=== PATIENT | male | born 1930 | race Caucasian/White ===

== ENCOUNTER 2017-06-24 10:31 | Observation (INO) | payer MEDICARE ==
[2017-06-24] MEDS ORDERED: NS 0.9% 1000 ML* 1,000 ML IV ONE (11:20)
--- NOTE | 2017-06-24 11:49 | RAD ---
Indication: Syncope. CT of the brain was performed without IV contrast. Ventricular structures are midline. No midline shift is noted. The extra-axial spaces are unremarkable. There is no evidence of intracranial mass or hemorrhage. No other high or low density lesions are identified. The paranasal sinuses demonstrates mucous retention cyst of left sphenoid sinus. The remainder of the paranasal sinuses are unremarkable. Mastoid air cells are unremarkable. IMPRESSION: No intracranial mass or hemorrhage is noted. Left sphenoid mucous retention cyst.
--- NOTE | 2017-06-24 11:56 | RAD ---
INDICATION: Syncope, trauma. COMPARISON: There are no prior studies available for comparison. TECHNIQUE: Contiguous axial sections were obtained from the skull base through the T1 vertebra. Images were reconstructed in the sagittal and coronal planes. FINDINGS: The vertebra are in normal alignment. No prevertebral soft tissue swelling or fracture is seen. At the C2-C3 level there is mild posterior uncinate process spurring and hypertrophic changes within the facet joints. There is mild spinal canal narrowing and mild bilateral neural foraminal narrowing. At the C3-C4 level there is moderate posterior uncinate process spurring and hypertrophic changes within the facet joints. There is moderate spinal canal narrowing and moderate bilateral neural foraminal narrowing. At the C4-C5 level there is mild posterior uncinate process spurring and hypertrophic changes within the facet joints. There is mild to moderate spinal canal narrowing. There is mild neural foraminal narrowing on the right side and moderate neural foraminal narrowing on the left side. At the C5-C6 level there is moderate posterior uncinate process spurring and hypertrophic changes within the facet joints. There is moderate spinal canal narrowing and moderate to severe bilateral neural foraminal narrowing. At the C6-C7 level there is mild posterior uncinate process spurring and hypertrophic changes within the facet joints. There is mild to moderate spinal canal narrowing and moderate bilateral neural foraminal narrowing. There is a 1.1 cm nodule within the left thyroid lobe. IMPRESSION: 1. NO EVIDENCE FOR FRACTURE OR SUBLUXATION. 2. 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 3. 1.1 CM NODULE WITHIN THE LEFT THYROID LOBE.
[2017-06-24 12:09] LABS: Hematocrit 37 % (42-52); Hemoglobin 12.1 g/dl (14.0-18.0); Mean Corpuscular HGB Conc 33 g/dl (31-36); Mean Corpuscular Hemoglobin 32 pg (27-31); Mean Corpuscular Volume 97 fL (80-94); Mean Platelet Volume 10 um3 (7.4-10.4); Red Blood Count 3.79 10^6/ul (4.0-5.4); Red Cell Distribution Width 14 % (10.5-15); White Blood Count 13.4 10^3/ul (3.5-10.8)
[2017-06-24 12:26] LABS: ALT 15 U/L (7-52); AST 17 U/L (13-39); Albumin 3.5 g/dL (3.2-5.2); Alkaline Phosphatase 87 U/L (34-104); Anion Gap 5 mmol/L (2-11); BUN/Creatinine Ratio 12.6 (8-20); Blood Urea Nitrogen 14 mg/dL (6-24); CO2 Carbon Dioxide 28 mmol/L (22-32); Calcium 8.9 mg/dL (8.6-10.3); Chloride 104 mmol/L (101-111); Creatine Kinase 34 U/L (10-223); EGFR African American 81.2 (>60); EGFR Non-African American 63.1 (>60); Globulin 3.5 g/dL (2-4); Glucose 115 mg/dL (70-100); Magnesium 1.7 mg/dL (1.9-2.7); Potassium 4.2 mmol/L (3.5-5.0); Sodium 137 mmol/L (133-145)
[2017-06-24 12:27] LABS: Troponin I 0.02 ng/mL (<0.04)
--- NOTE | 2017-06-24 12:45 | RAD ---
INDICATION: Syncope. COMPARISON: There are no prior studies available for comparison. TECHNIQUE: A portable view of the chest was obtained. FINDINGS: Cardiac and mediastinal contours appear to be within normal limits. The lungs are clear. No pleural effusion is seen. Note is made of old left posterior ununited mid rib fractures. IMPRESSION: NO EVIDENCE FOR ACUTE FINDING.
[2017-06-24 12:52] LABS: TSH (Thyroid Stimulating Horm) 1.03 mcIU/mL (0.34-5.60)
[2017-06-24] MEDS ORDERED: Acetaminophen TAB* 325 MG PO PRN (13:46)
[2017-06-24] MEDS ORDERED: Ondansetron INJ* 2 MG/ML VIAL IV PRN (13:46)
[2017-06-24] MEDS ORDERED: NS 0.9% 1000 ML* 1,000 ML IV SCH (14:00)
[2017-06-24] MEDS ORDERED: Enoxaparin(*) 40 MG/0.4 ML SYR SUBCUT SCH (14:00)
[2017-06-24 14:21] LABS: Urine Bilirubin Negative (Negative); Urine Glucose Negative (Negative); Urine Nitrite Negative (Negative)
[2017-06-24 15:02] LABS: Vitamin B12 452 pg/mL (180-914)
[2017-06-24 15:03] LABS: Folate > 20.00 ng/mL (>3.99)
--- NOTE | 2017-06-24 17:23 | ECHO ---
Patient: ELOISE HSU [facility] Rec#: [id number] : 1930 Date: 06/24/2017 Age: 86y Height: 182.88 cm / 72.0 in Weight: 65.77 kg / 145.0 lbs Sex: M BSA: 1.86 Room#: 443 Admit Date#: 06/24/2017 Type: Inpatient Referring: Sarah Johnson Reading: Layton Mcclendon MD Optometry Doctor: Clare Pressley JOSUE CC: Jimbo Liang MD Transthoracic Echocardiogram Indication: Syncope BP: 134/74 HR: 72 Rhythm: NSR Findings History: Syncope today. Prior PCI x3,quit smoking 1987. Technical Comments: The study is technically limited due to the patient's smoking history. Completed at 1533. Left Ventricle: The left ventricular chamber size is normal. Mild concentric left ventricular hypertrophy is observed. The estimated ejection fraction is 50-55%. Possible anterolateral hypokinesis in some views. There is no consistent Doppler evidence of clinically significant diastolic dysfunction. Left Atrium: The left atrium is slightly dilated. Right Ventricle: The right ventricular cavity size is normal. The right ventricular global systolic function is normal. Right Atrium: The right atrium is slightly dilated. Aortic Valve: The aortic valve is trileaflet. The aortic valve leaflets are mildly thickened. There is no evidence of aortic regurgitation. There is no evidence of aortic stenosis. Mitral Valve: The mitral valve leaflets appear normal. There is trace to mild mitral regurgitation. There is no evidence of mitral stenosis. Tricuspid Valve: The tricuspid valve leaflets are normal. There is mild tricuspid regurgitation. There is evidence of mild pulmonary hypertension. There is no tricuspid stenosis. Pulmonic Valve: The pulmonic valve appears normal. There is no evidence of pulmonic regurgitation. There is no pulmonic stenosis. Pericardium: The pericardium appears normal. Aorta: There is no dilatation of the ascending aorta. There is no dilatation of the aortic arch. There is no dilation of the aortic root. Pulmonary Artery: The main pulmonary artery appears normal. Venous: The venous system is not well visualized. Summary: There was not any prior study for comparison. Conclusions Mild concentric left ventricular hypertrophy is observed. The estimated ejection fraction is 50-55%. Possible anterolateral hypokinesis in some views. The left atrium is slightly dilated. There is evidence of mild pulmonary hypertension. There is trace to mild mitral regurgitation. There is mild tricuspid regurgitation. There is evidence of mild pulmonary hypertension. Measurements Name Value Normal Range RVIDd (AP) 2D 2.5 cm (0.9 - 2.6) RVDdMajor (2D) 3.7 cm (2.2 - 4.4) RAd ISD 4CH 5.4 cm (3.4 - 4.9) RA (A4C)W 4.5 cm (2.9 - 4.6) IVSd (2D) 1.5 cm (0.6 - 1) LVPWd (2D) 1.1 cm (0.6 - 1) LVIDd (2D) 3 cm (3.6 - 5.4) LVIDs (2D) 2.3 cm - LV FS (2D) 23 % (25 - 45) Aortic Annulus 2 cm (1.4 - 2.6) Ao root diameter (2D) 2.7 cm (2.1 - 3.5) Ascending Ao 3.4 cm (2.1 - 3.4) Aortic arch 2.3 cm (1.8 - 3.4) Descending Ao 0.9 cm - LA dimension (AP) 2D 4.7 cm (2.3 - 3.8) LAd ISD 4CH 5.9 cm (2.9 - 5.3) LA ISD 4CH W 3.6 cm (2.5 - 4.5) Name Value Normal Range LA ESV SP 4CH (A/L) 62 ml - LA ESV SP 2CH (A/L) 79 ml - LA ESV BP (A/L) 76 ml - LA ESV BP (A/L) index 40.93 ml/m2 - LA ESV SP 4CH (MOD) 56 ml - LA ESV SP 2CH (MOD) 75 ml - Name Value Normal Range MV E-wave Vmax 1.1 m/sec - MV deceleration time 223 msec - MV A-wave Vmax 0.9 m/sec - MV E:A ratio 1.28 ratio - LV septal e' Vmax 0.09 m/sec - LV lateral e' Vmax 0.11 m/sec - LV E:e' septal ratio 12.22 ratio - LV E:e' lateral ratio 10 ratio - Name Value Normal Range AV Vmax 1.4 m/sec - AV VTI 26.8 cm - AV peak gradient 7.48 mmHg - AV mean gradient 3.68 mmHg - LVOT Vmax 1.2 m/sec - LVOT VTI 25.6 cm - LVOT peak gradient 5.94 mmHg - LVOT mean gradient 2.12 mmHg - Name Value Normal Range TR Vmax 2.9 m/sec - TR peak gradient 32 mmHg - RAP 8 mmHg - RVSP 40 mmHg - Name Value Normal Range PV Vmax 1.1 m/sec - PV peak gradient 4.67 mmHg -
--- NOTE | 2017-06-24 17:57 | HP ---
CC: Dr. Jimbo Liang * HISTORY AND PHYSICAL: DATE OF ADMISSION: 06/24/17 PROVIDER: Genoveva Donnelly NP ATTENDING PHYSICIAN: Dr. Mirian Goetz * (as dictated by Genoveva Donnelly NP). PRIMARY CARE PROVIDER: Dr. Jimbo Liang. CHIEF COMPLAINT: Syncope. HISTORY OF PRESENT ILLNESS: Mr. Asif is an 86-year-old gentleman, who is from [place], who was in the [facility] this morning, for modular home placement. The patient does not recall the event this morning, secondary to the syncopal episode. The history is provided by his granddaughter, who did observe the event. Reportedly, the patient was leaning up against a dump truck, while the family was out at the modular home built. The granddaughter noted that the patient was leaning over, and she thought that he was looking at his shoes. She went over to check on him and noticed that he was not responding and then went to provide him with support. Her was with her and tried to support him, and at this point, the patient's legs started to collapse. He did bump the back of his head on the dump truck on his way down. His granddaughter reports he lost consciousness for about 2 minutes. Of note, his granddaughter works as a nurse at [employer]. She states that he maintained a pulse and good breathing throughout the event and did not notice any other concerns, such as a facial droop. She denies any complaints or concerns from the patient and heard no reports of chest pain or shortness of breath. She does note that he was very diaphoretic as well as tachypneic and noticed some drooling. He was also very pale. The patient woke up 2 minutes later, she says that he was back to his normal self and answering questions approximately and was able to communicate at his baseline. Family does endorse another episode of syncope that occurred about 2 years ago up in [place], also on a hot day. This was thought to be secondary to dehydration. Family reports that when EMS arrived, they noted that the patient's heartbeat was erratic with PACs and varying pulse rates. He was originally going to travel to the hospital via BLS, but they called the ALS truck with concern for the patient's heart rate. Here in the ER, the patient did have a mildly elevated white count of 13.4, hemoglobin 12.1, hematocrit 37. The patient is mildly macrocytic, has a platelet count of 145, and a mag level of 1.7. Currently, the patient denies any acute complaints and states he "feels fine." Family does note that the patient has had consistent issues with electrolyte levels since he started Lasix over the past 6 months. The patient's significant other also reports that he has had intermittent diarrhea at home secondary to magnesium replacement. They also report that the patient did not drink much fluid today. He does usually drink coffee every day. PAST MEDICAL HISTORY: 1. Coronary artery disease, the patient is status post 3 stents placed at [facility] on 04/20/17. 2. COPD. 3. Asthma. 4. Hypertension. 5. Hyperlipidemia. 6. GERD. 7. History of prostate cancer, status post radiation therapy. PAST SURGICAL HISTORY: 1. Three stents placed in March 2017. 2. Right carotid endarterectomy. 3. Cholecystectomy. 4. Hernia repair in 1987. HOME MEDICATIONS: 1. Protonix 40 mg daily. 2. Furosemide 20 mg daily. 3. Hytrin 5 mg at bedtime. 4. Lisinopril 5 mg daily. 5. Clopidogrel 75 mg daily. 6. Atorvastatin 80 mg daily. 7. Asmanex 1 puff inhaled b.i.d. 8. Aspirin 81 mg daily. ALLERGIES: Include BETA BLOCKERS, which caused anaphylactic shock. FAMILY HISTORY: He reports the father, who was , who had coronary artery disease as well as a sister who from heart valve complications. He also reports a sister with lung cancer. SOCIAL HISTORY: The patient is a former smoker. He quit in 1987. He report rare alcohol use. He is retired. He frequently fishes. He performs all his own independent ADLs. He lives with a friend, Chelsey Jackman, who is also his healthcare proxy. He has multiple children and a granddaughter. REVIEW OF SYSTEMS: As per HPI. PHYSICAL EXAMINATION GENERAL: Mr. Asif is a very pleasant 86-year-old gentleman, who is lying in the ED stretcher, in no acute distress. VITAL SIGNS: Temperature 97.1, heart rate 70, respiratory rate 16, blood pressure 134/74, and O2 saturation 99% on room air. HEENT: Head is atraumatic, normocephalic. Face is symmetrical. Pupils are equal, round, and reactive to light. Extraocular movements are intact. Oral mucosa appears moist. There is no oropharyngeal erythema or exudate. NECK: Supple. No lymphadenopathy appreciated. No JVD noted. RESPIRATORY: Lungs are clear to auscultation. No accessory muscle use. CARDIAC: S1, S2 heart sounds. Regular rate and rhythm. No murmurs, rubs, or gallops.. There is no peripheral edema. ABDOMEN: Soft, nontender, nondistended. Bowel sounds present times all 4 quadrants. MUSCULOSKELETAL: There is no clubbing or cyanosis. The patient has full range of motion. NEURO: Cranial nerves II through XII are grossly intact. The patient moves all extremities. Sensation is intact to light touch throughout. PSYCH: He is alert and oriented x3. Affect is appropriate. SKIN: Appears grossly intact. Limited assessment. DIAGNOSTIC STUDIES/LAB DATA: CBC: WBC 13.4, hemoglobin 12.1, hematocrit 37, MCV 97, MCH 32, platelet count 145. CMP: Sodium 137, potassium 4.2, chloride 104, carbon dioxide 28, BUN 14, creatinine 1.11, glucose 115, lactic acid 1.8, magnesium 1.7. Total bilirubin 0.9, AST 17, ALT 15, alk phos 87. Total CK 34. Troponin 0.02. BNP 72. Total protein 7, albumin 3.5. TSH 1.03. CT of the cervical spine, impression: No evidence for fracture or subluxation. [id number] cervical spondylosis, 1.1-cm nodule within the left thyroid lobe. Chest x-ray, impression: No evidence for acute finding. CT of the brain, impression: No intracranial mass or hemorrhage noted. There is a left sphenoid mucous retention cyst. EKG shows sinus rhythm, rate of 71, no T-wave inversions or ST changes noted. There are no old medical records for review. ASSESSMENT AND PLAN: Mr. Asif is an 86-year-old male, who presents today with concern for syncopal episode, he will be admitted under observation to the telemetry floor. Plan is as follows: 1. Syncope. Admit to telemetry. The patient's history of present illness supports likely dehydration. The patient reports no changes to his activity tolerance. He has a previous history of syncope, also for dehydration in the past and has recently been on Lasix, has reported diarrhea, and poor fluid intake today. We will monitor him on telemetry for evidence of any arrhythmias. The patient was showing PACs on his telemetry in the ED and does have a slightly decreased magnesium at 1.7. We will replace his mag and recheck his BMP tomorrow. The patient will receive an additional liter of fluid. We will also check orthostatic vital signs prior to additional IVF. UA is pending, although the patient does not endorse any complaints consistent with acute infection, but he does have a mildly elevated white blood cell count, which we will also recheck tomorrow. I did talk with the ekg technician, who is able to do an echocardiogram today. I will also request records from the patient's primary collision mechanic, Dr. Pratt, at [facility]. 2. Leukocytosis. Suspect this is a leukemoid reaction to recent syncopal episode. Continue to monitor. We will check a UA. Chest x-ray is clear. The patient does not show any other acute symptoms of infection, and he appears to be at his baseline, per his family. 3. Macrocytosis. Unsure of the chronicity of this. I will check a B12 and folate level. The patient may require further outpatient followup. He is mildly anemic, which also may be contributing to his syncopal episode, but, again, I do not have a baseline for the patient, as he has not been in the hospital here before. As this point, we will follow his CBC to make sure it stays stable. The patient is on Plavix and aspirin, which may be contributing to his anemia. I will also check a stool occult. 4. Hypomagnesemia. Suspect this is secondary to the patient's furosemide use. Replete mag via IV. 5. History of coronary artery disease. Continue home aspirin, atorvastatin, and Plavix, as the patient is status post stent placement earlier this year. 6. History of chronic obstructive pulmonary disease, appears stable. Continue home Asmanex. 7. History of hypertension. Continue lisinopril. 8. History of hyperlipidemia. Continue atorvastatin. 9. History of gastroesophageal reflux disease. Continue pantoprazole. 10. History of prostate cancer. Continue terazosin and outpatient followup with PCP. 11. FEN. The patient is ordered a heart-healthy diet and 1 L of fluids. 12. DVT prophylaxis. The patient scores a 3 on the risk assessment scale and he has ordered subcu Lovenox. 13. Code status: The patient is a full code. TIME SPENT: Time spent on this admission was approximately 60 minutes, more than half that time was spent [id number] with the patient obtaining history and physical, performing physical examination, and reviewing the plan of care. Plan of care was also reviewed with my attending, Dr. Goetz, who is in agreement. GENOVEVA DONNELLY, PHOTOGRAPHIC HAND DEVELOPER [id number]/CPS #: [id number] CAMRYN
[2017-06-24] MEDS: Mometasone 220 MCG MDI INH SCH (20:17)
[2017-06-24] MEDS ORDERED: Terazosin CAP* 5 MG PO SCH (21:00)
--- NOTE | 2017-06-24 23:12 | ED ---
Augie Hansen SooYoung, scribed for Jelena Goode MD on 06/24/17 at 1126 . Syncope/Near Syncope - HPI Summary HPI Summary: An 86 y/o M [place] presents to ED after syncopal episode onset UNDER BASTER. Associated sx : diaphoresis. Denies CP. Granddaughter who is a nurse and is present in ED, was with pt during syncopal episode, states he hit his head mildly against a dump truck, and LOC was approx 2 minutes. Pt always had a pulse. Upon waking, pt was A&O and without facial droop. He is on HCTZ diuretic and has recently had low K and Mg levels. Pt takes a baby aspirin, Plavix, Protonix, K and Mg supplements, and prostate medicine. Family states pt is not good at staying hydrated, and that he was outside doing yard work yesterday. PMHx: multiple stents with last one on 04/20, COPD. No PMHx of afib, pacemaker or NV. Transitioning to Dr. Mcclendon's office. - History Of Current Complaint Chief Complaint: EDSyncope Hx Obtained From: Patient, Family/Licensed Optician - multiple family present in ED; granddaughter was present during syncope Onset/Duration: Sudden Onset, Lasting Minutes, Resolved Timing: Minutes - 2 mins Context: Witnessed - granddaughter, Loss Of Consciousness Associated Head Trauma: Yes Aggravating Factor(s): Nothing Alleviating Factor(s): Nothing Associated Signs And Symptoms: Diaphoresis, Head Trauma (Recent) - hit against dump truck, Other - neg: CP Frequency: Episodes x___ - 1 - Risk Factors Cardiac Risk Factors: Hypertension, Family History, CAD Dysrhythmia Risk Factors: Age Greater Than 45, Underlying CAD - Allergies/Home Medications Allergies/Adverse Reactions: Allergies Allergy/AdvReac Type Severity Reaction Status Date / Time Beta Adrenergic Blockers Allergy Anaphylatic Verified 06/24/17 10:45 Shock Home Medications: Home Medications Aspirin EC Low Dose* [Ecotrin EC Low Dose 81 MG*] 81 mg PO DAILY 06/24/17 [ History Confirmed 06/24/17] Atorvastatin* [Lipitor*] 80 mg PO DAILY 06/24/17 [History Confirmed 06/24/17] Clopidogrel TAB* [Plavix TAB*] 75 mg PO DAILY 06/24/17 [History Confirmed ] Furosemide TAB* [Lasix TAB*] 20 mg PO DAILY 06/24/17 [History Confirmed 06/24/17 ] Lisinopril TAB* [Prinivil TAB*] 5 mg PO DAILY 06/24/17 [History Confirmed ] Mometasone 220 MCG MDI * [Asmanex 220 MCG MDI *] 1 puff INH BID 06/24/17 [ History Confirmed 06/24/17] Pantoprazole TAB (NF) [Protonix TAB (NF)] 40 mg PO DAILY 06/24/17 [History Confirmed 06/24/17] Terazosin CAP* [Hytrin CAP*] 5 mg PO BEDTIME 06/24/17 [History Confirmed ] PMH/Surg Hx/FS Hx/Imm Hx Previously Healthy: No Cardiovascular History: Reports: Hx Coronary Artery Disease Denies: Hx Atrial Fibrillation, Hx Myocardial Infarction Respiratory History: Reports: Hx Chronic Obstructive Pulmonary Disease (COPD) GI History: Reports: Hx Gastroesophageal Reflux Disease - Surgical History Surgery Procedure, Year, and Place: Multiple stents Infectious Disease History: No Infectious Disease History: Denies: Traveled Outside the [place] in Last 30 Days - Social History Occupation: Retired Lives: With Family Alcohol Use: Rare Substance Use Type: Reports: None Smoking Status (MU): Former Smoker Review of Systems Positive: Skin Diaphoresis Negative: Chest Pain Negative: Shortness Of Breath Negative: Abdominal Pain Positive: Other - pos: mild head trauma Positive: Syncope - with LOC. Negative: Headache Psychological: Normal All Other Systems Reviewed And Are Negative: Yes Physical Exam Triage Information Reviewed: Yes Vital Signs On Initial Exam: Initial Vitals Temp Pulse Resp BP Pulse Ox 98.7 F 69 16 137/57 97 06/24/17 10:38 06/24/17 10:38 06/24/17 10:38 06/24/17 10:38 06/24/17 10:38 Vital Signs Reviewed: Yes Appearance: Positive: No Pain Distress, Well-Nourished, Ill-Appearing - mild. Negative: Signs of Trauma Skin: Positive: Warm, Skin Color Reflects Adequate Perfusion, Diaphoretic - mildly Head/Face: Positive: Normal Head/Face Inspection. Negative: Cephalohematoma Eyes: Positive: Conjunctiva Clear ENT: Positive: Normal ENT inspection Neck: Positive: Supple Respiratory/Lung Sounds: Positive: Clear to Auscultation, Breath Sounds Present , Other - no respiratory distress. Negative: Rales Cardiovascular: Positive: RRR, Other - pulses normal, brisk capillary refill. Negative: Murmur Abdomen Description: Positive: Nontender, Soft. Negative: Distended, Guarding, Pulsatile Mass Musculoskeletal: Positive: Strength/ROM Intact. Negative: Arcadio Sign Left, Arcadio Sign Right, Edema Left, Edema Right Neurological: Positive: Sensory/Motor Intact, Alert, Oriented to Person Place, Time, CN Intact II-III, Facial Symmetry, Speech Normal Psychiatric: Positive: Normal Diagnostics - Vital Signs Vital Signs Temp Pulse Resp BP Pulse Ox 06/24/17 10:43 97.8 F 71 16 137/57 96 06/24/17 10:38 98.7 F 69 16 137/57 97 - Laboratory Lab Results: Lab Results 06/24/17 06/24/17 06/24/17 Range/Units 11:55 11:55 11:55 WBC 13.4 H (3.5-10.8) 10^3/ul RBC 3.79 L (4.0-5.4) 10^6/ul Hgb 12.1 L (14.0-18.0) g/dl Hct 37 L (42-52) % MCV 97 H (80-94) fL MCH 32 H (27-31) pg MCHC 33 (31-36) g/dl RDW 14 (10.5-15) % Plt Count 145 L (150-450) 10^3/ul MPV 10 (7.4-10.4) um3 Neut % (Auto) 87.0 H (38-83) % Lymph % (Auto) 5.4 L (25-47) % [place] % (Auto) 6.7 (1-9) % Eos % (Auto) 0.4 (0-6) % Baso % (Auto) 0.5 (0-2) % Absolute Neuts (auto) 11.7 H (1.5-7.7) 10^3/ul Absolute Lymphs (auto) 0.7 L (1.0-4.8) 10^3/ul Absolute Monos (auto) 0.9 H (0-0.8) 10^3/ul Absolute Eos (auto) 0.1 (0-0.6) 10^3/ul Absolute Basos (auto) 0.1 (0-0.2) 10^3/ul Absolute Nucleated RBC 0.01 10^3/ul Nucleated RBC % 0 INR (Anticoag Therapy) 0.96 (0.89-1.11) APTT 25.7 L (26.0-36.3) seconds Sodium 137 (133-145) mmol/L Potassium 4.2 (3.5-5.0) mmol/L Chloride 104 (101-111) mmol/L Carbon Dioxide 28 (22-32) mmol/L Anion Gap 5 (2-11) mmol/L BUN 14 (6-24) mg/dL Creatinine 1.11 (0.67-1.17) mg/dL Est GFR ( Amer) 81.2 (>60) Est GFR (Non-Af Amer) 63.1 (>60) BUN/Creatinine Ratio 12.6 (8-20) Glucose 115 H (70-100) mg/dL Lactic Acid (0.5-2.0) mmol/L Calcium 8.9 (8.6-10.3) mg/dL Magnesium 1.7 L (1.9-2.7) mg/dL Total Bilirubin 0.90 (0.2-1.0) mg/dL AST 17 (13-39) U/L ALT 15 (7-52) U/L Alkaline Phosphatase 87 (34-104) U/L Total Creatine Kinase 34 (10-223) U/L Troponin I 0.02 (<0.04) ng/mL B-Natriuretic Peptide ( - 100) pg/mL Total Protein 7.0 (6.4-8.9) g/dL Albumin 3.5 (3.2-5.2) g/dL Globulin 3.5 (2-4) g/dL Albumin/Globulin Ratio 1.0 (1-3) Vitamin B12 452 (180-914) pg/mL Folate > 20.00 (>3.99) ng/mL TSH 1.03 (0.34-5.60) mcIU/mL 06/24/17 06/24/17 Range/Units 11:55 11:55 WBC (3.5-10.8) 10^3/ul RBC (4.0-5.4) 10^6/ul Hgb (14.0-18.0) g/dl Hct (42-52) % MCV (80-94) fL MCH (27-31) pg MCHC (31-36) g/dl RDW (10.5-15) % Plt Count (150-450) 10^3/ul MPV (7.4-10.4) um3 Neut % (Auto) (38-83) % Lymph % (Auto) (25-47) % [place] % (Auto) (1-9) % Eos % (Auto) (0-6) % Baso % (Auto) (0-2) % Absolute Neuts (auto) (1.5-7.7) 10^3/ul Absolute Lymphs (auto) (1.0-4.8) 10^3/ul Absolute Monos (auto) (0-0.8) 10^3/ul Absolute Eos (auto) (0-0.6) 10^3/ul Absolute Basos (auto) (0-0.2) 10^3/ul Absolute Nucleated RBC 10^3/ul Nucleated RBC % INR (Anticoag Therapy) (0.89-1.11) APTT (26.0-36.3) seconds Sodium (133-145) mmol/L Potassium (3.5-5.0) mmol/L Chloride (101-111) mmol/L Carbon Dioxide (22-32) mmol/L Anion Gap (2-11) mmol/L BUN (6-24) mg/dL Creatinine (0.67-1.17) mg/dL Est GFR ( Amer) (>60) Est GFR (Non-Af Amer) (>60) BUN/Creatinine Ratio (8-20) Glucose (70-100) mg/dL Lactic Acid 1.8 (0.5-2.0) mmol/L Calcium (8.6-10.3) mg/dL Magnesium (1.9-2.7) mg/dL Total Bilirubin (0.2-1.0) mg/dL AST (13-39) U/L ALT (7-52) U/L Alkaline Phosphatase (34-104) U/L Total Creatine Kinase (10-223) U/L Troponin I (<0.04) ng/mL B-Natriuretic Peptide 72 ( - 100) pg/mL Total Protein (6.4-8.9) g/dL Albumin (3.2-5.2) g/dL Globulin (2-4) g/dL Albumin/Globulin Ratio (1-3) Vitamin B12 (180-914) pg/mL Folate (>3.99) ng/mL TSH (0.34-5.60) mcIU/mL Result Diagrams: 06/24/17 11:55 06/24/17 11:55 Lab Statement: Any lab studies that have been ordered have been reviewed, and results considered in the medical decision making process. - Radiology CXR Xray Interpretation: No Acute Changes - IMPRESSION: no evidence for acute finding. Radiology Interpretation Completed By: Radiologist - CT BRAIN CT CT Interpretation: Positive (See Comments) - IMPRESSION: No intracranial mass or hemorrhage is noted. Left sphenoid mucous retention cyst. CT Interpretation Completed By: Radiologist C-SPINE CT Interpretation: Positive (See Comments) - IMPRESSION: 1. NO EVIDENCE FOR FRACTURE OR SUBLUXATION. 2. 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 3. 1.1 CM NODULE WITHIN THE LEFT THYROID LOBE. CT Interpretation Completed By: Radiologist - EKG 1118 Cardiac Rate: NL EKG Rhythm: Sinus Rhythm EKG Interpretation: nml AVIVCD, no acute QTC, nml axis Course/Dx Course Of Treatment: Medications reviewed. Allergies noted. Pre-Hypertensive BP reading (137/57); patient referred to PCP for follow-up. Lab results show lactic acid, BNP are WNL. Trop is 0.02. UA results are WNL except specific gravity is 1.009. EKG was NSR at 71 bpm, nml AVIVCD, nml axis, nml QTC. CXR is neg. Brain CT shows "No intracranial mass or hemorrhage is noted. Left sphenoid mucous retention cyst." C-SPINE CT shows "1. NO EVIDENCE FOR FRACTURE OR SUBLUXATION. 2. 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 3. 1.1 CM NODULE WITHIN THE LEFT THYROID LOBE.". Per hospitalist consult, pt will be admitted for observation. - Diagnoses Differential Diagnosis/HQI/PQRI: Positive: Cerebral Vascular Accident, Coronary Artery Disease, Hypovolemia, Metabolic Reaction, Myocardial Infarction, Seizure Provider Diagnoses: Syncope, Anemia, Hypomagnesemia - Physician Notifications Discussed Care of Patient With: Mirian Mercedes Time Discussed With Above Provider: 13:15 Instructed by Provider To: Admit As Observation - Critical Care Time Critical Care Time: 30-74 min - 30 minutes Discharge - Discharge Plan Condition: Stable Disposition: ADMITTED TO [facility] The documentation as recorded by the Augie wyatt SooYoung accurately reflects the service I personally performed and the decisions made by me, Jelena Goode MD.
[2017-06-25 05:50] LABS: Hematocrit 33 % (42-52); Hemoglobin 10.8 g/dl (14.0-18.0); Mean Corpuscular HGB Conc 33 g/dl (31-36); Mean Corpuscular Hemoglobin 32 pg (27-31); Mean Corpuscular Volume 98 fL (80-94); Mean Platelet Volume 10 um3 (7.4-10.4); Red Blood Count 3.36 10^6/ul (4.0-5.4); Red Cell Distribution Width 13 % (10.5-15); White Blood Count 8.4 10^3/ul (3.5-10.8)
[2017-06-25 06:04] LABS: BUN/Creatinine Ratio 14.1 (8-20); Calcium 8.5 mg/dL (8.6-10.3); EGFR African American 100.8 (>60); EGFR Non-African American 78.4 (>60); Potassium 4.4 mmol/L (3.5-5.0)
[2017-06-25] MEDS: Mometasone 220 MCG MDI INH SCH (08:15)
[2017-06-25] MEDS ORDERED: Atorvastatin* 80 MG TAB PO SCH (09:00)
[2017-06-25] MEDS ORDERED: Lisinopril TAB* 5 MG PO SCH (09:00)
[2017-06-25] MEDS ORDERED: Aspirin EC Low Dose* 81 MG TAB.EC PO SCH (09:00)
[2017-06-25] MEDS ORDERED: CMCS: Pantoprazole TAB (NF) 40 MG TAB PO SCH (09:00)
[2017-06-25] MEDS ORDERED: Clopidogrel TAB* 75 MG PO SCH (09:00)
[2017-06-25 09:17] VITALS: BP 140/61
--- NOTE | 2017-06-25 13:08 | DS ---
DISCHARGE SUMMARY: DATE OF ADMISSION: DATE OF DISCHARGE: 06/25/17 HOSPITAL COURSE: This 86-year-old man presented with syncope. He was visiting his family on the mo rning of admission about 9:30. It was a very hot day. He had breakfast and took his morning meds a bout 7 in the morning. He does not really recall passing out. He denied having palpitations, chest pain or shortness of breath before or after. He said it was outdoors where he passed out. They br ought him a chair and had him sit up in the chair. His granddaughter who is a nurse called the 911 and the ambulance brought him here. He has felt fine here. He is walking around without any dizzin ess. He once passed out a couple of years ago. There have been no changes in the medication or changes in his weight. He seems to be entirely at h is baseline. Possibly, the very hot weather affected him. He was admitted to telemetry. EKG was unremarkable. Transthoracic echocardiogram showed normal ejection fraction of 50% to 55% with possible anterior hy pokinesis in some views. I am reducing the patient's furosemide from daily to 4 days a week. He will take his potassium 4 da ys a week as well. Although the computer record said he was on lisinopril, the patient denies ever taking lisinopril. The patient will ask his [facility] physician about possibly changing from terazosin to tamsulosin to see if this, in the future, gave him less problems, although if he has syncope every year or two, it may b e difficult to tell if it is related to medications. FINAL DIAGNOSES: 1. Syncope. 2. Coronary artery disease. 3. Chronic obstructive pulmonary disease. DISCHARGE MEDICATIONS: 1. Potassium chloride 20 mEq b.i.d. on Tuesday, Tuesday, Tuesday, and Tuesday. 2. Furosemide 20 mg once daily on Tuesday, Tuesday, Tuesday, and Tuesday. 3. Terazosin 5 mg h.s. 4. Clopidogrel 75 mg daily. 5. Atorvastatin 80 mg daily. 6. Mometasone 220 mcg 1 puff b.i.d. 7. Aspirin 81 mg daily. 8. Pantoprazole 40 mg daily. [id number]/[facility] #: [id number]
== END 2017-06-25 10:30 | disposition home or self-care (01) ==
LOC: ED 10:31 → MEDTELE 13:18
PROVIDERS: ADMIT Internal Medicine; ATTEND Internal Medicine
DX: R55 Syncope and collapse (principal); I25.10 Atherosclerotic heart disease of native coronary artery without angina pectoris; J44.9 Chronic obstructive pulmonary disease, unspecified; Z79.82 Long term (current) use of aspirin; Z95.5 Presence of coronary angioplasty implant and graft; Z87.891 Personal history of nicotine dependence; Z85.46 Personal history of malignant neoplasm of prostate; E78.5 Hyperlipidemia, unspecified; I10 Essential (primary) hypertension; D72.829 Elevated white blood cell count, unspecified; D75.89 Other specified diseases of blood and blood-forming organs; E83.42 Hypomagnesemia; M47.892 Other spondylosis, cervical region
CPT/HCPCS: 36415; 70450; 71010; 72125; 80048; 80053; 81003; 82272; 82550; 82607; 82746; 83605; 83735; 83880; 84443; 84484; 85025; 85610; 85730; 93005; 93306; 94640; 96374; 99284; A9270-GY; G0378; J1650; J3475

== ENCOUNTER 2017-09-01 13:15 | Emergency (ER) | payer MEDICARE ==
[2017-09-01] MEDS ORDERED: NS 0.9% 1000 ML* 500 ML IV ONE (14:34)
[2017-09-01 15:07] LABS: Hematocrit 36 % (42-52); Mean Corpuscular HGB Conc 33 g/dl (31-36); Mean Corpuscular Hemoglobin 32 pg (27-31); Mean Corpuscular Volume 96 fL (80-94); Mean Platelet Volume 10 um3 (7.4-10.4); Red Blood Count 3.77 10^6/ul (4.0-5.4); Red Cell Distribution Width 14 % (10.5-15); White Blood Count 9.6 10^3/ul (3.5-10.8)
[2017-09-01 15:21] LABS: Albumin 3.7 g/dL (3.2-5.2); BUN/Creatinine Ratio 19.6 (8-20); Calcium 9.2 mg/dL (8.6-10.3); EGFR African American 89.5 (>60); EGFR Non-African American 69.6 (>60); Globulin 3.6 g/dL (2-4); Potassium 4.7 mmol/L (3.5-5.0); Total Bilirubin 1.2 mg/dL (0.2-1.0); Total Protein 7.3 g/dL (6.4-8.9)
[2017-09-01 17:02] VITALS: BP 146/58
--- NOTE | 2017-09-03 09:09 | PN ---
Progress Note - Progress Note Date of Service: 09/01/17 Note: positive stool occult blood. already noted.
--- NOTE | 2017-09-03 18:22 | ED ---
Chris Hansen Alfonso, scribed for Ramy Garcia MD on 09/01/17 at 1442 . GI/ HPI - HPI Summary HPI Summary: This patient is an 86 year old M [facility] by with a chief complaint of blood in the stool noticed earlier today at his PCP. The patient rates the pain 0/10 in severity. Symptoms aggravated by nothing. Symptoms alleviated by nothing. Patient reports RLE erythema at a wound, near syncope, and palpitations. Patient denies dizziness, abdominal pain, N/V, CP, and SOB. He takes ASA and Plavix for his A-Fib. - History of Current Complaint Chief Complaint: EDGIBleed Time Seen by Provider: 09/01/17 14:33 Stated Complaint: IRREGULAR LABS Hx Obtained From: Patient Onset/Duration: Still Present Timing: Constant Current Severity: Mild Pain Intensity: 0 Associated Signs and Symptoms: Positive: Other: - Patient reports RLE erythema at a wound, near syncope, and palpitations. Patient denies dizziness, abdominal pain, N/V, CP, and SOB. Aggravating Factor(s): Nothing Alleviating Factor(s): Nothing - Additional Pertinent History Primary Care Physician: [id number] - Allergy/Home Medications Allergies/Adverse Reactions: Allergies Allergy/AdvReac Type Severity Reaction Status Date / Time BLAINE Inhibitors Allergy Unknown Verified 07/15/17 15:07 Reaction Details Beta Adrenergic Blockers Allergy Anaphylatic Verified 06/24/17 10:45 Shock PMH/Surg Hx/FS Hx/Imm Hx Cardiovascular History: Reports: Hx Atrial Fibrillation, Hx Coronary Artery Disease Denies: Hx Myocardial Infarction Respiratory History: Reports: Hx Asthma, Hx Chronic Obstructive Pulmonary Disease (COPD) GI History: Reports: Hx Gastroesophageal Reflux Disease Sensory History: Reports: Hx Contacts or Glasses Denies: Hx Hearing Aid Opthamlomology History: Reports: Hx Contacts or Glasses Neurological History: Reports: Hx Migraine - per patient, only "mild" migraines Denies: Hx Seizures, Hx Transient Ischemic Attacks (TIA) - Cancer History Cancer Type, 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 Negative: Chest Pain Negative: Shortness Of Breath Positive: Other - blood in the stool. Negative: Abdominal Pain, Vomiting, Nausea Positive: Other - RLE erythema at a wound Neurological: Other - Negative dizziness Positive: Syncope - near All Other Systems Reviewed And Are Negative: Yes Physical Exam - Summary Physical Exam Summary: VITAL SIGNS: Reviewed. GENERAL: Patient is an elderly male who is lying comfortable in the stretcher. Patient is not in any acute respiratory distress. HEAD AND FACE: No signs of trauma. No ecchymosis, hematomas or skull depressions. No sinus tenderness. EYES: PERRLA, EOMI x 2, No injected conjunctiva, no nystagmus. EARS: Hearing grossly intact. Ear canals and tympanic membranes are within normal limits. MOUTH: Oropharynx within normal limits. NECK: Supple, trachea is midline, no adenopathy, no JVD, no carotid bruit, no c- spine tenderness, neck with full ROM. CHEST: Symmetric, no tenderness at palpation LUNGS: Clear to auscultation bilaterally. No wheezing or crackles. CVS: Regular rate and rhythm, S1 and S2 present, no murmurs or gallops appreciated. ABDOMEN: Soft, non-tender. No signs of distention. No rebound no guarding, and no masses palpated. Bowel sounds are normal. RECTAL: External hemorrhoids. Normal sphincter tongue. No gross blood. EXTREMITIES: FROM in all major joints, no edema, no cyanosis or clubbing. RLE small wound with surround erythema and no discharge. NEURO: Alert and oriented x 3. No acute neurological deficits. Speech is normal and follows commands. SKIN: Dry and warm Triage Information Reviewed: Yes Vital Signs On Initial Exam: Initial Vitals Temp Pulse Resp BP Pulse Ox 97.7 F 75 17 113/47 97 09/01/17 13:41 09/01/17 13:41 09/01/17 13:41 09/01/17 13:41 09/01/17 13:41 Vital Signs Reviewed: Yes - [place] Coma Scale Coma Scale Total: 15 Diagnostics - Vital Signs Vital Signs Temp Pulse Resp BP Pulse Ox 09/01/17 14:33 79 96 10/12/17 14:31 146/75 09/01/17 13:41 97.7 F 75 17 113/47 97 - Laboratory Lab Results: Lab Results 09/01/17 09/01/17 09/01/17 Range/Units 14:40 14:41 14:41 WBC 9.6 (3.5-10.8) 10^3/ul RBC 3.77 L (4.0-5.4) 10^6/ul Hgb 12.0 L (14.0-18.0) g/dl Hct 36 L (42-52) % MCV 96 H (80-94) fL MCH 32 H (27-31) pg MCHC 33 (31-36) g/dl RDW 14 (10.5-15) % Plt Count 163 (150-450) 10^3/ul MPV 10 (7.4-10.4) um3 Neut % (Auto) 83.9 H (38-83) % Lymph % (Auto) 8.3 L (25-47) % [place] % (Auto) 6.9 (1-9) % Eos % (Auto) 0.2 (0-6) % Baso % (Auto) 0.7 (0-2) % Absolute Neuts (auto) 8.0 H (1.5-7.7) 10^3/ul Absolute Lymphs (auto) 0.8 L (1.0-4.8) 10^3/ul Absolute Monos (auto) 0.7 (0-0.8) 10^3/ul Absolute Eos (auto) 0 (0-0.6) 10^3/ul Absolute Basos (auto) 0.1 (0-0.2) 10^3/ul Absolute Nucleated RBC 0 10^3/ul Nucleated RBC % 0 INR (Anticoag Therapy) 1.23 H (0.89-1.11) APTT 29.5 (26.0-36.3) seconds Sodium (133-145) mmol/L Potassium (3.5-5.0) mmol/L Chloride (101-111) mmol/L Carbon Dioxide (22-32) mmol/L Anion Gap (2-11) mmol/L BUN (6-24) mg/dL Creatinine (0.67-1.17) mg/dL Est GFR ( Amer) (>60) Est GFR (Non-Af Amer) (>60) BUN/Creatinine Ratio (8-20) Glucose (70-100) mg/dL Calcium (8.6-10.3) mg/dL Total Bilirubin (0.2-1.0) mg/dL AST (13-39) U/L ALT (7-52) U/L Alkaline Phosphatase (34-104) U/L Total Protein (6.4-8.9) g/dL Albumin (3.2-5.2) g/dL Globulin (2-4) g/dL Albumin/Globulin Ratio (1-3) Blood Type O Positive Antibody Screen Negative 09/01/17 Range/Units 14:41 WBC (3.5-10.8) 10^3/ul RBC (4.0-5.4) 10^6/ul Hgb (14.0-18.0) g/dl Hct (42-52) % MCV (80-94) fL MCH (27-31) pg MCHC (31-36) g/dl RDW (10.5-15) % Plt Count (150-450) 10^3/ul MPV (7.4-10.4) um3 Neut % (Auto) (38-83) % Lymph % (Auto) (25-47) % [place] % (Auto) (1-9) % Eos % (Auto) (0-6) % Baso % (Auto) (0-2) % Absolute Neuts (auto) (1.5-7.7) 10^3/ul Absolute Lymphs (auto) (1.0-4.8) 10^3/ul Absolute Monos (auto) (0-0.8) 10^3/ul Absolute Eos (auto) (0-0.6) 10^3/ul Absolute Basos (auto) (0-0.2) 10^3/ul Absolute Nucleated RBC 10^3/ul Nucleated RBC % INR (Anticoag Therapy) (0.89-1.11) APTT (26.0-36.3) seconds Sodium 130 L (133-145) mmol/L Potassium 4.7 (3.5-5.0) mmol/L Chloride 98 L (101-111) mmol/L Carbon Dioxide 26 (22-32) mmol/L Anion Gap 6 (2-11) mmol/L BUN 20 (6-24) mg/dL Creatinine 1.02 (0.67-1.17) mg/dL Est GFR ( Amer) 89.5 (>60) Est GFR (Non-Af Amer) 69.6 (>60) BUN/Creatinine Ratio 19.6 (8-20) Glucose 119 H (70-100) mg/dL Calcium 9.2 (8.6-10.3) mg/dL Total Bilirubin 1.20 H (0.2-1.0) mg/dL AST 15 (13-39) U/L ALT 11 (7-52) U/L Alkaline Phosphatase 104 (34-104) U/L Total Protein 7.3 (6.4-8.9) g/dL Albumin 3.7 (3.2-5.2) g/dL Globulin 3.6 (2-4) g/dL Albumin/Globulin Ratio 1.0 (1-3) Blood Type Antibody Screen Result Diagrams: 09/01/17 14:41 09/01/17 14:41 Lab Statement: Any lab studies that have been ordered have been reviewed, and results considered in the medical decision making process. - EKG 1502 Cardiac Rate: NL - BPM 71 EKG Rhythm: Sinus Rhythm EKG Interpretation: No ST elevation. GIGU Course/Dx - Course Assessment/Plan: This patient is an 86 year old M [facility] by with a chief complaint of blood in the stool noticed earlier today at his PCP. The patient rates the pain 0/10 in severity. Symptoms aggravated by nothing. Symptoms alleviated by nothing. Patient reports RLE erythema at a wound, near syncope, and palpitations. Patient denies dizziness, abdominal pain, N/V, CP, and SOB. He takes ASA and Plavix for his A-Fib. An EKG reveals NSR. Test results shows chronic anemia at his baseline with H&H of 12. Sodium 139. INR of 1.23. Glucose of 119. Occult blood is positive. At this time I discussed the case with Dr. Mccormick and he recommends discharge and outpatient follow up with him and or his PCP since H&H and vital signs are both stable. I discussed the plan with the patient and he agrees. He was given instruction to return to the ED if he developed any rectal bleeding, dizziness, palpations, CP, or any other symptoms. He understands and agrees. The patient is hemodynamically stable and alert and oriented x3. - Diagnoses Differential Diagnoses - Male: Constipation, Diverticulitis - GI bleed, Hemorrhoids Provider Diagnoses: GI bleed Discharge - Discharge Plan Condition: Stable Disposition: HOME Patient Education Materials: Rectal Bleeding (ED), Gastrointestinal Bleeding ( ED) Referrals: Garth TOLBERT,Jimbo Morales [Primary Care Provider] - 3 Days Sunny Mccormick MD [Medical Doctor] - 3 Days Additional Instructions: RETURN TO THE EMERGENCY DEPARTMENT FOR CHANGING OR WORSENING SYMPTOMS. The documentation as recorded by the Chris wyatt Alfonso accurately reflects the service I personally performed and the decisions made by , Ramy Garcia MD.
== END 2017-09-01 17:14 | disposition home or self-care (01) ==
LOC: ED 13:15
DX: K92.2 Gastrointestinal hemorrhage, unspecified (principal); R55 Syncope and collapse; R00.2 Palpitations; L53.9 Erythematous condition, unspecified; I48.91 Unspecified atrial fibrillation; Z79.01 Long term (current) use of anticoagulants; Z79.82 Long term (current) use of aspirin; I25.10 Atherosclerotic heart disease of native coronary artery without angina pectoris; Z95.5 Presence of coronary angioplasty implant and graft; J44.9 Chronic obstructive pulmonary disease, unspecified; K21.9 Gastro-esophageal reflux disease without esophagitis; G43.909 Migraine, unspecified, not intractable, without status migrainosus; Z88.8 Allergy status to other drugs, medicaments and biological substances; Z85.46 Personal history of malignant neoplasm of prostate; Z87.891 Personal history of nicotine dependence
CPT/HCPCS: 36415; 80053; 82270; 85025; 85610; 85730; 86850; 86900; 86901; 93005; 96360; 99282

== ENCOUNTER 2018-01-31 07:02 | Observation (INO) | payer MEDICARE ==
[2018-01-31] MEDS ORDERED: Diazepam TAB(*) 5 MG ONE (08:11)
[2018-01-31 08:42] LABS: ABS Basophils 0.1 10^3/ul (0-0.2); ABS Eosinophils 0.2 10^3/ul (0-0.6); ABS Lymphocytes 1.2 10^3/ul (1.0-4.8); ABS Monocytes 0.7 10^3/ul (0-0.8); ABS Nucleated RBC 0 10^3/ul; Eosinophil % 2.3 % (0-6); Hematocrit 36 % (42-52); Hemoglobin 12.1 g/dl (14.0-18.0); Lymphocyte % 17.2 % (25-47); Mean Corpuscular HGB Conc 34 g/dl (31-36); Mean Corpuscular Hemoglobin 32 pg (27-31); Mean Corpuscular Volume 95 fL (80-94); Mean Platelet Volume 10 um3 (7.4-10.4); Nucleated Red Blood Cells % 0.1; Platelet Count 141 10^3/ul (150-450); Red Blood Count 3.74 10^6/ul (4.0-5.4); Red Cell Distribution Width 14 % (10.5-15); White Blood Count 7.2 10^3/ul (3.5-10.8)
[2018-01-31] MEDS ORDERED: Lidocaine 1% INJ* 10 MG/ML 30 ML SDV ONE (08:52)
[2018-01-31] MEDS ORDERED: Midazolam* 1 MG/ML 5 ML VIAL (5 MG) ONE (08:53)
[2018-01-31] MEDS ORDERED: Flumazenil* 0.1 MG/ML 5 ML MDV ONE (08:54)
[2018-01-31] MEDS ORDERED: Naloxone* 0.4 MG/ML 1 ML VIAL ONE (08:54)
[2018-01-31] MEDS ORDERED: fentaNYL* 50 MCG/ML 2 ML VIAL (100 MCG VIAL) ONE (08:54)
[2018-01-31 08:58] LABS: INR 0.96 (0.77-1.02)
[2018-01-31] MEDS ORDERED: ceFAZolin 2 GM PREMIX (*) 2 GM/50 ML BAG IVPB ONE (09:00)
[2018-01-31] MEDS ORDERED: ceFAZolin 1 GM/10 ML flush(*) SYRINGE for pocket flush (cardiology) FLUSH ONE (09:00)
[2018-01-31 09:06] LABS: EGFR Non-African American 73.6 (>60)
[2018-01-31] MEDS ORDERED: Acetaminophen TAB* 325 MG PO PRN (10:20)
[2018-01-31] MEDS ORDERED: oxyCODONE/Acetamin 5/325 MG* TAB PO PRN (10:20)
[2018-01-31] MEDS ORDERED: ceFAZolin 1 GM VIAL(*) 1 GM in NS 0.9% 50 ML* 50 ML IVPB SCH (11:00)
--- NOTE | 2018-01-31 13:38 | RAD ---
INDICATION: Status post device implant. COMPARISON: Comparison is made with a prior chest x-ray study from June 24, 2017. TECHNIQUE: A portable view of the chest was obtained. FINDINGS: The patient is status post placement of a transvenous dual-chamber transvenous pacemaker. The heart is within normal limits in size. The lungs are underinflated and grossly clear. No pneumothorax is seen. IMPRESSION: STATUS POST PACEMAKER PLACEMENT, NO EVIDENCE FOR ACUTE FINDING.
[2018-01-31] MEDS: ceFAZolin 1 GM/10 ML SYRINGE IVPB Q8H IVPB SCH ×2 (17:59)
[2018-01-31] MEDS: Mometasone 220 MCG MDI INH SCH (19:27)
[2018-01-31] MEDS: [UNRECOGNIZED DRUG - OTHER] PO SCH (20:42)
[2018-02-01] MEDS: ceFAZolin 1 GM/10 ML SYRINGE IVPB Q8H IVPB SCH ×4 (03:42→10:45)
[2018-02-01] MEDS: Mometasone 220 MCG MDI INH SCH (08:17)
[2018-02-01] MEDS: [UNRECOGNIZED DRUG - OTHER] PO SCH (08:48)
[2018-02-01] MEDS ORDERED: Terazosin CAP* 5 MG PO SCH (09:00)
[2018-02-01] MEDS ORDERED: Digoxin TAB* 0.125 MG PO SCH (09:00)
[2018-02-01] MEDS ORDERED: Clopidogrel TAB* 75 MG PO SCH (09:00)
[2018-02-01] MEDS ORDERED: Apixaban* 5 MG TAB PO SCH (09:00)
[2018-02-01] MEDS ORDERED: Potassium Chlor TAB* 10 MEQ TAB.ER PO SCH (09:00)
--- NOTE | 2018-02-01 09:34 | RAD ---
Indication: Status post pacemaker placement. 2 views of the chest are reviewed and compared to previous exam dated January 31, 2018. Left-sided pacemaker leads are in place. No pneumothorax is noted. The cardiac multiple monitor is also noted overlying the left cardiac silhouette. Lung malone are clear. IMPRESSION: No pneumothorax is noted. Pacemaker leads appear to be in place.
[2018-02-01 11:40] VITALS: BP 123/68
--- NOTE | 2018-02-01 12:29 | OP ---
CC: Dr. Layton Mcclendon.* DATE OF OPERATION: 01/31/18 - ROOM #434 DATE OF : 34 SURGEON: Jose Walters MD ANESTHESIA: Local anesthesia with conscious sedation. PRE-OP DIAGNOSIS: Sick-sinus syndrome. POST-OP DIAGNOSIS: Sick-sinus syndrome. OPERATIVE PROCEDURE: Dual-chamber pacemaker implantation. ESTIMATED BLOOD LOSS: Nil. COMPLICATIONS: None. INDICATIONS: The patient is an 87-year-old gentleman with a history of atrial fibrillation and history of bradycardia. The patient has had an implanted event monitor for [address] Mcclendon has been following closely. Ultimately, the patient was diagnosed with sick sinus syndrome and Dr. Mcclendon recommended permanent pacemaker implantation which I agree. DESCRIPTION OF PROCEDURE: The patient was brought to the operating room in a fasting state. Informed consent had been obtained prior to the procedure. All labs have been reviewed. The patient had been off his Eliquis for 3 days. The patient as placed supine on the procedure table and his left deltopectoral area was cleaned and draped in the usual fashion. 1% lidocaine was used for local anesthesia. Under ultrasound guidance, the axillary vein was entered by a modified Seldinger technique and a guidewire was placed. A second guidewire was placed in the same technique. A 4-cm incision was made in the pectoral area and blunt dissection was carried on to the pectoral fascia. A pocket was fashioned for the pacemaker. Over the guidewire a 7-Nepali sheath introducer was placed through which a right ventricular lead was advanced to the RV apex. The right ventricular lead is a Medtronic model 5076, serial #[id number] and had an R-wave sensitivity of 11, impendence 163 ohms, threshold 0.7 volts at 0.5 msec. The ventricular lead was sutured to the pectoral fascia using 0 silk. Over the second guidewire a 7- Nepali sheath introducer was placed through which a right atrial lead was advanced to the high right atrium. The right atrial lead is a Medtronic model 5076 serial #[id number] and had a P-wave sensitivity of 0.9, impedance 627 ohms , threshold 1.2 volts at 1 msec. The atrial lead was sutured to the pectoral fascia using 0 silk. The pocket was flushed with antibiotic infused normal saline. A generator was attached appropriately to the atrioventricular lead. The generator is a Medtronic model A2DR01, serial #[id number]. The device was placed into the pocket. The surgical incision was closed in three layers. The patient was returned to the holding area in stable condition. [id number]/[facility] #: [id number] CAMRYN
[2018-02-01] MEDS ORDERED: Atorvastatin* 80 MG TAB PO SCH (15:21)
--- NOTE | 2018-02-02 00:59 | DS ---
CC: Dr. Layton Mcclendon; Dr. Jimbo Liang * DISCHARGE SUMMARY: DATE OF ADMISSION: DATE OF DISCHARGE: 02/01/18 HISTORY OF PRESENT ILLNESS: Mr. Asif is an 87-year-old gentleman with tachy- tianna syndrome in need of rate lowering agents for atherosclerotic heart disease and risk factors. He had a Linq implanted revealing tachyarrhythmias as well as bradyarrhythmias and he was referred for dual chamber pacemaker implantation. The patient underwent dual chamber pacemaker implantation yesterday on 01/31/18 (Medtronic MRI compatible system) without complications. Today, he has some mild soreness at the incision. No shortness of breath. No complaints walking. PAST MEDICAL HISTORY: 1. The patient has past medical history of tachybrady syndrome with 5-second pause on 12/06/17 and supraventricular tachycardia to 150 beats a minute. 2. Paroxysmal atrial fibrillation. 3. Syncope 2013. 4. Coronary artery disease with stents. 5. Hypertension. 6. Peripheral vascular disease (carotids). 7. Prostate cancer. 8. COPD. 9. Reflux. 10. Spinal stenosis. 11. Thyroid nodule. PAST SURGICAL HISTORY: Includes: 1. Cholecystectomy. 2. Right carotid endarterectomy. FAMILY HISTORY: Positive for coronary artery disease. His father of heart - related issues at age 57. He has a sister with a valve problem. Sister who of lung cancer. Brother who with emphysema. SOCIAL HISTORY: The patient is a former smoker. Occasional alcohol. Lives with his significant other. PHYSICAL EXAMINATION: Vital Signs: The patient is 6 feet, weighs 153 pounds with a BMI of 21. Blood pressure 137/74, pulse is 65 and regular, respiratory rate 16, temperature 98.5, oxygen saturation on room air is 98%. General Appearance: Lean elderly gentleman, lying in bed, in no acute distress. Psychologic: Pleasant and cooperative. Neurologic: Awake, alert, and oriented to person, place, and time. Grossly normal sensory and motor function in the upper and lower extremities and normal gait. Skin: Warm and dry. Pacemaker incision in the left subclavian fossa appears unremarkable. Sandra intact. No bleeding. No hematoma. No ecchymosis and no evidence of infection. Lungs: Breath sounds, he had a rhonchorous cough, but after this, his lungs were clear in all malone, free of wheezes, rales, or rhonchi with symmetrical breath sounds in all areas. Coronary: S1, S2 regular. Abdomen: Flat, free of hepatomegaly, masses or bruits. Active bowel sounds and nontender. Extremities: Free of edema. Upper extremities were symmetrical in size. IMAGING: Chest x-ray done today shows no pneumothorax. Atrial and ventricle leads adequately placed, although not a lot of extra lead in the ventricle. Pacemaker interrogation today confirms the patient has an [employer] ROGERS MRI compatible system. He was placed in AAIR/DDDR mode. Atrial lead senses T- waves to 1.4 millivolts with an atrial lead impedance of 399 ohms and then atrial pacing threshold was 0.5 volts at 0.4 milliseconds. The ventricle lead senses R waves at 8.4 milliseconds with the ventricular lead impedance of 494 ohms and ventricular pacemaker threshold of 0.5 volts at 0.4 milliseconds. His EKG today at 6:35 shows normal sinus rhythm, 70 beats per minute. QRS axis +15 with normal AV and IV conduction times and normal ST segments. With the magnet, there is dual chamber pacing with PVCs and what looked like fusion beats in the ventricle. CONCLUSION: Mr. Asif is an 87-year-old gentleman, day 1 status post dual chamber pacemaker implantation. Clinically doing well with no complications. He will be discharged to home on his outpatient medications with the addition of Keflex. DISCHARGE MEDICATIONS: His medications at discharge are as follows: 1. Keflex 250 mg t.i.d. 2. Eliquis 5 mg b.i.d. 3. Atorvastatin 80 mg every other day. 4. Plavix 75 mg a day. 5. Digoxin 0.125 mcg a day. 6. Asmanex inhaler 220 mcg MDI 1 puff b.i.d. 7. Potassium chloride 10 mEq a day. 8. Slow-Mag 143 mg b.i.d. 9. Terazosin 5 mg a day. LABORATORY DATA: Labs on admission: White count 7.2, hemoglobin 12, hematocrit 36, mean cell volume 95. Sodium 137, potassium 4.1, chloride 104, bicarb 27, BUN 22, creatinine 0.95, glucose 115. INR 0.96. Verbal and written instructions were provided to the patient for wound care. He will follow up with Dr. Walters in a week for wound check and in approximately a month with Dr. Mcclendon for full pace of interrogation and followup. [id number]/[facility] #: [id number] CAMRYN
== END 2018-02-01 12:20 | disposition home or self-care (01) ==
LOC: CHICATH 07:02 → MEDTELE 10:21
PROVIDERS: ADMIT Specialist; ATTEND Specialist
DX: I49.5 Sick sinus syndrome (principal); I48.0 Paroxysmal atrial fibrillation; I10 Essential (primary) hypertension; I25.10 Atherosclerotic heart disease of native coronary artery without angina pectoris; Z95.5 Presence of coronary angioplasty implant and graft; I73.9 Peripheral vascular disease, unspecified; Z85.46 Personal history of malignant neoplasm of prostate; J44.9 Chronic obstructive pulmonary disease, unspecified; K21.9 Gastro-esophageal reflux disease without esophagitis; M48.00 Spinal stenosis, site unspecified; E04.1 Nontoxic single thyroid nodule; Z90.49 Acquired absence of other specified parts of digestive tract
CPT/HCPCS: 33208; 36415; 71045; 71046; 80048; 85025; 85610; 93005; 94640; 96374; 99156; 99157; A9270-GY; C1785; C1898; G0378; J0690; J2250; J2310; J3010

== ENCOUNTER → 2018-11-10 10:31 | Emergency (ER) | payer MEDICARE ==
[~2018-11-10 10:31] MED LIST: Iohexol 350* (CONTRAST) 500 ML MDV IV ONE; Metoclopramide IV* 5 MG/ML 2 ML VIAL IV SLOW PU ONE; NS 0.9% 500 ML* 500 ML IV ONE; Valsartan TAB* 80 MG PO ONE; methylPREDNISolone 125 MG* 2 ML VIAL IV ONE
--- NOTE | 2018-11-10 11:33 | ED ---
Headache - HPI Summary HPI Summary: This patient is an 87 year old M presenting to [facility] with a chief complaint of headaches since one week ago. The patient states he currently has a headache around his eyes and it moves around from his forehead to his neck. Patient visited [facility] and they said he was unremarkable for stroke but may be at risk for [place] Palsy. Patient was prescribed prednisone from this visit. He states this medication helped reduce severity but the headaches did not resolve. Patient has Hx of migraines but has never had headaches like this. Patient takes Eliquis for his AFIB. Patient denies blurred vision, nausea, photophobia, trouble speaking, FHx of aneurisms. He states he staggers sometimes when he gets up to walk. The patient does not use a walker or a cane. Patient reports he sometimes has pain down the back of his neck. Patient denies fever, sweats, chills. He rates the pain of his headache 3/10 in severity. Patient has been taking Tylenol for his headaches. - History Of Current Complaint Chief Complaint: EDHeadache Stated Complaint: SEVERE HEADACHE Time Seen by Provider: 11/10/18 11:05 Hx Obtained From: Patient Onset/Duration: Started weeks ago Currently Pain Is: Current Pain Scale(0-10)= - 3, Mild Timing: Constant, Weeks Location of Headache: Frontal Aggravating Factor: Nothing Allevating Factors: Medication - Allergies/Home Medications Allergies/Adverse Reactions: Allergies Allergy/AdvReac Type Severity Reaction Status Date / Time BLAINE Inhibitors Allergy Rash Verified 11/10/18 11:19 Beta-Adrenergic Agents Allergy Anaphylatic Verified 11/10/18 11:19 Shock Home Medications: Home Medications Flomax CAP* 4 mg PO DAILY 11/10/18 [History Confirmed 11/10/18] PMH/Surg Hx/FS Hx/Imm Hx Endocrine/Hematology History: Denies: Hx Diabetes Cardiovascular History: Reports: Hx Coronary Artery Disease - STENT 03/2107 RCA, Hx Hypercholesterolemia, Hx Hypertension, Hx Pacemaker/ICD - 01/2017 Denies: Hx Angina, Hx Atrial Fibrillation, Hx Myocardial Infarction, Hx Valvular Heart Disease Respiratory History: Reports: Hx Asthma, Hx Chronic Obstructive Pulmonary Disease (COPD) GI History: Reports: Hx Gastroesophageal Reflux Disease Sensory History: Reports: Hx Contacts or Glasses Denies: Hx Hearing Aid Opthamlomology History: Reports: Hx Contacts or Glasses Neurological History: Reports: Hx Migraine - per patient, only "mild" migraines Denies: Hx Seizures, Hx Transient Ischemic Attacks (TIA) - Cancer History Cancer Type, Location and Year: PROSTATE CA Hx Radiation Therapy: Yes - Surgical History Surgery Procedure, Year, and Place: Multiple stents Infectious Disease History: No Infectious Disease History: Denies: Hx Clostridium Difficile, Hx Hepatitis, Hx Human Immunodeficiency Virus (HIV), Hx of Known/Suspected MRSA, Traveled Outside the [place] in Last 30 Days - Family History Known Family History: Positive: Other - Neg: Aneurisms - Social History Alcohol Use: Occasionally Substance Use Type: Reports: None Smoking Status (MU): Former Smoker Type: Cigarettes, Cigars Amount Used/How Often: 10-15 years,mostly cigars Have You Smoked in the Last Year: No Review of Systems Negative: Fever, Chills Negative: Erythema Negative: Sore Throat Negative: Chest Pain Negative: Shortness Of Breath, Cough Negative: Abdominal Pain, Vomiting, Nausea Negative: dysuria, hematuria Negative: Myalgia, Edema Neurological: Other - Neg: Dizziness Positive: Headache All Other Systems Reviewed And Are Negative: No Physical Exam - Summary Physical Exam Summary: Constitutional: Well-developed, Well-nourished, Alert. (-) Distressed Skin: Warm, Dry HENT: Normocephalic; Atraumatic Eyes: Conjunctiva normal Neck: Musculoskeletal ROM normal neck. (-) JVD, (-) Stridor, (-) Tracheal deviation Cardio: Rhythm regular, rate normal, Heart sounds normal; Intact distal pulses; The pedal pulses are 2+ and symmetric. Radial pulses are 2+ and symmetric. (-) Murmur Pulmonary/Chest wall: Effort normal. (-) Respiratory distress, (-) Wheezes, (-) Rales Abd: Soft. (-) Tenderness, (-) Distension, (-) Guarding, (-) Rebound Musculoskeletal: (-) Edema Lymph: (-) Cervical adenopathy Neuro: Alert, Oriented x3, Strength normal, Cranial nerves II-XII are grossly intact. (-) Dysmetria, (-) Nystagmus, (-) Ataxia by finger to nose testing, (-) Sensory deficit. Psych: Mood and affect Normal Triage Information Reviewed: Yes Vital Signs On Initial Exam: Initial Vitals Temp Pulse Resp BP Pulse Ox 97.9 F 80 18 158/75 95 11/10/18 10:33 11/10/18 10:33 11/10/18 10:33 11/10/18 10:33 11/10/18 10:33 Vital Signs Reviewed: Yes Diagnostics - Vital Signs Vital Signs Temp Pulse Resp BP Pulse Ox 11/10/18 10:33 97.9 F 80 18 158/75 95 - Laboratory Result Diagrams: 11/10/18 11:25 11/10/18 11:25 Lab Statement: Any lab studies that have been ordered have been reviewed, and results considered in the medical decision making process. - CT Head CTA CT Interpretation Completed By: Radiologist Summary of CT Findings: No aneurysm, vascular malformation, occlusion, or stenosis of the visualized intracranial. ED Provider has reviewed this report. - EKG 11:30 Cardiac Rate: NL - 84 BPM EKG Rhythm: Sinus Rhythm ST Segment: Normal Ectopy: PVCs Re-Evaluation - Re-Evaluation First Eval Re-Evaluation Time: 17:40 Comment: Discussed treatment and discharge with patient. Headache Course/Dx - Course Course Of Treatment: This patient is an 87 year old M presenting to [facility] with a chief complaint of headaches since one week ago. Lumbar puncture is contrainidicated due to anticoagulent medication. MRI is contraindicated due to pacemaker. Head CTA was unremarkable for aneurysm, occusion, stenosis and vascular malformation. Dr. 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 He prescribed him with 16 mg of prednisone per day. He will see him in one week. He recommends BP monitoring at home. There is a small possibility his symptoms are actually his migraines, and prednisone should help with that. Patient will be discharged and instructed to follow up with Dr. Antoine and return with any new or worsening symptoms. This plan was discussed with the patient and the patient is agreeable with this plan. - Diagnoses Provider Diagnoses: Temporal arteritis, Hypertension - Physician Notifications Discussed Care Of Patient With: Fritz Antoine - Neurology Instructed by Provider To: MD Will See In ED Discharge - Sign-Out/Discharge Documenting (check all that apply): Patient Departure - Discharge Plan Condition: Stable Disposition: HOME Prescriptions: predniSONE TAB* [Deltasone 20 MG TAB*] 60 mg PO DAILY #14 tab Valsartan TAB* [Diovan TAB*] 80 mg PO DAILY #14 tab Patient Education Materials: Temporal Arteritis (ED), Hypertension (ED) Referrals: No Primary Care Phys,NOPCP [Primary Care Provider] - Additional Instructions: Return to ED with any new or worsening symptoms. Follow up with Dr. Antoine in 5 -7 days. - Billing Disposition and Condition Condition: STABLE Disposition: Home - Attestation Statements Document Initiated by Scribe: Yes Documenting Scribe: Salbador Rodriguez Provider For Whom Scribe is Documenting (Include Credential): Davy Dodd MD Scribe Attestation: Salbador Hansen, scribed for Davy Dodd MD on 11/10/18 at 2049. Scribe Documentation Reviewed: Yes Provider Attestation: The documentation as recorded by the Salbador wyatt accurately reflects the service I personally performed and the decisions made by , Davy Dodd MD Status of Scribe Document: Viewed
[2018-11-10 11:37] LABS: ABS Basophils 0 10^3/ul (0-0.2); ABS Eosinophils 0.1 10^3/ul (0-0.6); ABS Lymphocytes 1.1 10^3/ul (1.0-4.8); ABS Monocytes 0.9 10^3/ul (0-0.8); ABS Neutrophils 5.9 10^3/ul (1.5-7.7); ABS Nucleated RBC 0 10^3/ul; Eosinophil % 1.2 %; Hematocrit 36 % (42-52); Hemoglobin 12.3 g/dl (14.0-18.0); Lymphocyte % 13.3 %; Mean Corpuscular HGB Conc 34 g/dl (31-36); Mean Corpuscular Hemoglobin 33 pg (27-31); Mean Corpuscular Volume 98 fL (80-94); Mean Platelet Volume 9.3 fL (7.4-10.4); Nucleated Red Blood Cells % 0; Platelet Count 171 10^3/ul (150-450); Red Blood Count 3.71 10^6/ul (4.00-5.40); Red Cell Distribution Width 15 % (10.5-15); White Blood Count 8.1 10^3/ul (3.5-10.8)
[2018-11-10 11:55] LABS: Albumin 3.5 g/dL (3.2-5.2); Albumin/Globulin Ratio 1.1 (1-3); BUN/Creatinine Ratio 13.8 (8-20); C Reactive Protein 1.41 mg/L (<8.01); Calcium 8.9 mg/dL (8.6-10.3); EGFR African American 100.9 (>60); EGFR Non-African American 83.4 (>60); Globulin 3.2 g/dL (2-4); Potassium 4.2 mmol/L (3.5-5.0); Total Bilirubin 0.9 mg/dL (0.2-1.0); Total Protein 6.7 g/dL (6.4-8.9); Troponin I 0.01 ng/mL (<0.04)
[2018-11-10 12:22] LABS: Erythrocyte Sed Rate 21 mm/Hr (0-40)
[2018-11-10 18:36] VITALS: BP 174/73
--- NOTE | 2018-11-10 21:11 | CONS ---
NEUROLOGY CONSULTATION REPORT: DATE OF CONSULT: 11/10/18 LOCATION: He is in the emergency room. REFERRING PHYSICIAN: Dr. Dodd. CHIEF COMPLAINT: Headache. HISTORY OF PRESENT ILLNESS: Logan Asif is an 87-year-old man who about 8 or 9 days ago developed a left temporal headache. It was pretty severe and built up over the course of the morning. It radiated also behind the left eye. There was no tenderness, but it was pretty intense. It worsened and so he ended up going to [facility], where he was evaluated. He said he was treated with prednisone for 4 days, dose not known and valacyclovir. He was told that maybe he had early Alston palsy or trigeminal neuralgia, but also that there might be an inflammation of the arteries in the side of his neck or head. The headache improved while he was on the prednisone but started to come back again within a day or two of stopping it. It remained mainly in the left side, but then he had a couple of days where he was having a right temporal headache. He has not noticed any change in vision, photophobia, or nausea. He does have a history of migraines since he was a young man which were also temporal. It would be associated with photophobia and often preceded by a visual scotoma. He would have to close his eyes and rest and it would usually go away within an hour or two at most. They stopped pretty much completely several years ago when he had an endarterectomy. He started to get them again a few years ago, but they were generally pretty brief and few and far between. With this new illness, he did have some blood work at [place] [facility], where his sedimentation rate was borderline elevated at 31. He has not noticed any fevers, chills, stiff neck, or new aches and pains. Specifically, no shoulder or hip or back pains. He has not noticed any pain with chewing. He has not noticed any transient visual obscurations. PAST MEDICAL HISTORY: Notable for significant coronary artery disease as well as intermittent atrial fibrillation, for which he is on chronic Eliquis. He has a pacemaker as well. He has had 3 stents placed in the past. He has asthma , COPD, hypertension, hyperlipidemia, history of prostate cancer requiring radiation, history of gastroesophageal reflux. MEDICATIONS: Include: 1. Eliquis. 2. Plavix 75 mg. 3. Furosemide 20 mg. 4. Protonix 40 mg. 5. Hytrin 5 mg. 6. Magnesium supplementation. ALLERGIES: He is listed as having allergies to BLAINE INHIBITORS and BETA- ADRENERGIC AGENTS. REVIEW OF SYSTEMS: Negative for change in weight, intestinal problems, nausea, or vomiting. No recent chest pain or shortness of breath. No falls. PHYSICAL EXAM: On examination, he is well nourished and well hydrated. Temperature 97.9, blood pressure is fluctuating between about 150 to 174 systolic over 80 to 90 diastolic. Heart rate is in the 70s and irregularly irregular. Oxygen saturation is 98% on room air. Heart rhythm tones are distant. It sounds to be in atrial fibrillation. I do not hear any murmurs. Neck is supple. There are no cervical bruits. Oral mucosa is moist and atraumatic. Temporalis pulses are intact, and I do not detect any nodularity and there is no tenderness. Lungs are clear. Neurological Exam: Pupils react equally from 3 to 2 mm. There is no afferent pupillary defect. Funduscopic exam reveals sharp discs bilaterally. There is no ptosis. Visual malone are full to confrontation. Facial musculature and facial sensation are intact and symmetric. Palate and tongue appear normal and there is no dysarthria. He is a bit hard of hearing. Jaw strength seems normal and nontender. Motor exam reveals normal tone and strength proximally and distally in upper and lower extremities. There is no drift of any limb. Sensory exam is intact to light touch and pin discrimination in upper and lower extremities. He has a high frequency sustention and action tremor in both hands, which he says he has had for a long time. There is no rest tremor. Finger taps are normal. Reflexes are hypoactive but present other than absent ankle reflexes. I did not attempt to ambulate him. He is alert and oriented and a fair historian. He does not know his medications very well and is a little bit sketchy on his medical history. Language is fluent. DIAGNOSTIC STUDIES/LAB DATA: Laboratory data includes a normal chemistry profile today other than a sodium of 133. CRP is 1.41 today. CBC is unremarkable other than a hemoglobin of 12.3. Sed rate is 21. CT angiogram of the head is unremarkable. IMPRESSION AND PLAN: Possible temporal arteritis. He does have a history of migraines, but his current bitemporal, initially left, head pains are very suggestive. He has a normal sedimentation rate today, but he was treated with steroids within the last 10 days. He seemed to respond to steroids initially, but it was discontinued after 4 days and headaches worsened. He is on Eliquis and so I do not took a temporal artery biopsy can be done without stopping it or risk to the patient of having a thrombotic event. We would recommend treating with IV Solu-Medrol one dose now and then sending him home on prednisone 60 mg per day. I will get him into my office after next week and depending on how he is doing, try to taper the steroids. I did discuss with Mr. Asif and his that steroids have numerous side effects including insomnia, anxiety, intestinal problems, diabetes, hypertension. I will try to get him off from this as soon as possible depending upon how he looks at followup. [id number]/[facility] #: [id number] [place]
== END | disposition home or self-care (01) ==
LOC: ED 10:31
DX: M31.6 Other giant cell arteritis (principal); I10 Essential (primary) hypertension; I48.91 Unspecified atrial fibrillation; Z79.01 Long term (current) use of anticoagulants; I25.10 Atherosclerotic heart disease of native coronary artery without angina pectoris; E78.00 Pure hypercholesterolemia, unspecified; Z95.810 Presence of automatic (implantable) cardiac defibrillator; J44.9 Chronic obstructive pulmonary disease, unspecified; K21.9 Gastro-esophageal reflux disease without esophagitis; Z85.46 Personal history of malignant neoplasm of prostate; Z87.891 Personal history of nicotine dependence; Z79.02 Long term (current) use of antithrombotics/antiplatelets; Z95.818 Presence of other cardiac implants and grafts
CPT/HCPCS: 36415; 70496; 80053; 83605; 84484; 85025; 85652; 86140; 93005; 96361; 96374; 96375; 99284; A9270-GY; J2765; J2930; Q9967

== ENCOUNTER 2019-03-24 18:49 | Emergency (ER) | payer MEDICARE ==
[2019-03-24] MEDS ORDERED: hydrALAZINE IV* 20 MG/ML VIAL IV SLOW PU ONE ×2 (19:08→20:50)
--- NOTE | 2019-03-24 19:30 | ED ---
Neurological HPI - HPI Summary HPI Summary: This patient is an 88 year old M presenting to ED with a chief complaint of headache since 4 hours [employer]. The CC is described as occurring on the left side of head, beginning while patient was watching TV. He states the pain is not throbbing. The patient rates the pain 5/10 in severity. Symptoms aggravated by nothing. Symptoms alleviated by nothing. Patient reports neck pain on left side and is thirsty. Patient denies nausea and any visual changes. PMHx of HTN, CAD, HLD, pacemaker, asthma, COPD, GERD, migraine, prostate CA but no DM, angina, MD , seizures, TIA. PSHx of multiple stents. No FHx of aneurysms. Patient drinks alcohol occasionally, does not use substances, and is a former cigarette smoker. - History of Current Complaint Chief Complaint: EDHeadache Stated Complaint: HEADACHE PER DAUGHTER Time Seen by Provider: 03/24/19 19:06 Hx Obtained From: Patient Onset/Duration: Sudden Onset, Started hours ago - 1500, Still Present Timing: Constant Onset Severity: Moderate Current Severity: Moderate Headache Location: Diffuse (Left) Pain Intensity: 5 Pain Scale Used: 0-10 Numeric Character: Other: - Thirsty. Negative: visual changes, nausea Aggravating: Nothing Alleviating: Nothing Associated Signs and Symptoms: Positive: Headache, Pain - Left neck. Negative: Visual Changes, Nausea/Vomiting - Additional Pertinent History Primary Care Physician: SAMY - Allergy/Home Medications Allergies/Adverse Reactions: Allergies Allergy/AdvReac Type Severity Reaction Status Date / Time BLAINE Inhibitors Allergy Rash Verified 02/12/19 15:56 Beta-Adrenergic Agents Allergy Anaphylatic Verified 02/12/19 15:56 Shock diltiazem Allergy Rash Verified 02/12/19 15:56 Home Medications: Home Medications Clopidogrel Bisulfate [Plavix] 75 mg PO DAILY 03/24/19 [History Confirmed ] Pantoprazole Sodium [Protonix] 20 mg PO DAILY 03/24/19 [History Confirmed ] PMH/Surg Hx/FS Hx/Imm Hx Previously Healthy: No Endocrine/Hematology History: Denies: Hx Diabetes Cardiovascular History: Reports: Hx Coronary Artery Disease - STENT 03/2107 RCA, Hx Hypercholesterolemia, Hx Hypertension, Hx Pacemaker/ICD - 01/2017 Denies: Hx Angina, Hx Atrial Fibrillation, Hx Myocardial Infarction, Hx Valvular Heart Disease Respiratory History: Reports: Hx Asthma, Hx Chronic Obstructive Pulmonary Disease (COPD) GI History: Reports: Hx Gastroesophageal Reflux Disease Sensory History: Reports: Hx Contacts or Glasses Denies: Hx Hearing Aid Opthamlomology History: Reports: Hx Contacts or Glasses Neurological History: Reports: Hx Migraine - per patient, only "mild" migraines Denies: Hx Seizures, Hx Transient Ischemic Attacks (TIA) - Cancer History Cancer Type, Location and Year: PROSTATE CA Hx Radiation Therapy: Yes - Surgical History Surgery Procedure, Year, and Place: Multiple stents Infectious Disease History: No Infectious Disease History: Denies: Hx Clostridium Difficile, Hx Hepatitis, Hx Human Immunodeficiency Virus (HIV), Hx of Known/Suspected MRSA, Traveled Outside the [place] in Last 30 Days - Family History Known Family History: Positive: Other - Neg: Aneurisms - Social History Alcohol Use: Occasionally Hx Substance Use: No Substance Use Type: Reports: None Hx Tobacco Use: Yes Smoking Status (MU): Former Smoker Type: Cigarettes, Cigars Amount Used/How Often: 10-15 years,mostly cigars Have You Smoked in the Last Year: No Review of Systems Constitutional: Other - Thirsty Negative: Nausea Musculoskeletal: Other - Neck pain on left side Neurological: Negative - Visual changes Positive: Headache - Left side All Other Systems Reviewed And Are Negative: Yes Physical Exam - Summary Physical Exam Summary: VITAL SIGNS: Reviewed. GENERAL: Patient is a well-developed and nourished male who is lying comfortable in the stretcher.Patient is not in any acute respiratory distress. HEAD AND FACE: No signs of trauma. No ecchymosis, hematomas or skull depressions. No sinus tenderness. EYES: PERRLA, EOMI x 2, No injected conjunctiva, no nystagmus. No photophobia. EARS: Hearing grossly intact. Ear canals and tympanic membranes are within normal limits. MOUTH: Oropharynx within normal limits. NECK: Supple, trachea is midline, no adenopathy, no JVD, no carotid bruit, no c- spine tenderness, neck with full ROM. No meningeal signs, no Kernig's or brudzinskis signs. CHEST: Symmetric, no tenderness at palpation LUNGS: Clear to auscultation bilaterally. No wheezing or crackles. CVS: Regular rate and rhythm, S1 and S2 present, no murmurs or gallops appreciated. ABDOMEN: Soft, non-tender. No signs of distention. No rebound no guarding, and no masses palpated. Bowel sounds are normal. EXTREMITIES: FROM in all major joints, no edema, no cyanosis or clubbing. NEURO: Alert and oriented x 3. No acute neurological deficits. Speech is normal and follows commands. SKIN: Dry and warm GCS: 15 Triage Information Reviewed: Yes Vital Signs On Initial Exam: Initial Vitals Temp Pulse Resp BP Pulse Ox 99.5 F 84 14 214/84 94 03/24/19 18:57 03/24/19 18:57 03/24/19 18:57 03/24/19 18:57 03/24/19 18:57 Vital Signs Reviewed: Yes Diagnostics - Vital Signs Vital Signs Temp Pulse Resp BP Pulse Ox 03/24/19 18:57 99.5 F 84 14 214/84 94 - Laboratory Result Diagrams: 03/24/19 19:34 03/24/19 19:34 Lab Statement: Any lab studies that have been ordered have been reviewed, and results considered in the medical decision making process. - CT CT Brain CT Interpretation Completed By: Radiologist Summary of CT Findings: 1. Minimal chronic ischemic white matter change and atrophy which is similar to. 11/10/2018. 2. Minimal sphenoid and ethmoid sinus disease. Dr. Garcia has reviewed this radiology report. 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 Correctly Best Gaze (Only Horizontal Eye Movement): Normal Visual Field Testing: No Visual Loss Facial Paresis-Pt to Smile & Close Eyes or Grimace Symmetry: Normal/Symmetrical Motor Function - Right Arm: No Drift-Holds 10 Seconds Motor Function - Left Arm: No Drift-Holds 10 Seconds Motor Function - Right Leg: No Drift-Holds 10 Seconds Motor Function - Left Leg: No Drift-Holds 10 Seconds Limb Ataxia-Must be out of Proportion to Weakness Present: Absent Sensory (Use Pinprick to Test Arms/Legs/Trunk/Face): Normal Best Language (Describe Picture, Name Items): No Aphasia Dysarthria (Read Several Words): Normal Extinction and Inattention: No Abnormality Total Score: 0 Re-Evaluation - Re-Evaluation First Eval Re-Evaluation Time: 21:43 Comment: Discussed results with patient. Patient will be discharged with dx of uncontrolled HTN and TSE. Patient understands and agrees with this plan. Course/Dx - Course Assessment/Plan: This patient is a 89-year-old male who presents to the emergency department with a chief complaint of having a headache. The patient reports that he was watching TV 3 hours ago he developed a headache. Most of the headache is in the left side of the head radiating to the left side of the neck. Patient also was found to have increased blood pressure. Physical exam reveals normal exam without any neurological focal deficits. Blood test results without any significant abnormality except for slight normocytic normochromic anemia, glucose 139. In the ED course the patient was given hydralazine for his hypertension. Patient also was given Reglan and morphine for his headache. Head CT impression: minimal chronic ischemic white matter changes and atrophy which is similar to 2 out of 10/12/17. Minimal sphenoid and ethmoid sinus disease. After these medications was given the patients symptoms have improved. Also the blood pressure has improved. The blood pressures of 125/61. Headache is improving but not resolved. Patients ESR is only 6 therefore have no suspicion for temporal arteritis. Reexamination: Neurological exam is still intact. Patient doesnt have any deficits. I discussed my physical exam and findings with Dr. Mcclendon and he recommends for the patient to be discharged home with a prescription to control the blood pressure and follow-up with primary care physician. He has no other recommendations at this time. At this point I discussed all the findings and test results with the patient. He was instructed to return to the emergency room immediately if any of the symptoms return or worsens. They understand and agree. Neurological exam before discharge: Patient is alert and oriented x 3. No acute neurological deficits. Patient vital signs are stable. Patient is to follow up with CPP in the next 2 3 days. They understand and agree. Plan of care was discussed with the patient and patient understands and agrees with the plan of care. All questions were answered at patient satisfaction. There were no further complaints or concerns. - Diagnoses Provider Diagnoses: Uncontrolled hypertension, Headache - Physician Notifications Discussed Care Of Patient With: Azar Mcclendon Time Discussed With Above Provider: 21:57 Instructed by Provider To: Other - Discussed patient case with Dr. Mcclendon, neurologist, who recommended the patient for discharge with a prescription for Inderal. Discharge - Sign-Out/Discharge Documenting (check all that apply): Patient Departure - Discharge Patient Received Moderate/Deep Sedation with Procedure: No - Discharge Plan Condition: Stable Disposition: HOME Prescriptions: Propranolol TAB* [Inderal TAB*] 10 mg PO DAILY #10 tab Patient Education Materials: Acute Headache (ED), Hypertension (ED) Referrals: Garth TOLBERT,Jimbo Morales [Primary Care Provider] - 3 Days Additional Instructions: Follow-up with your primary care provider in 3 days. RETURN THE ER FOR CHANGING OR WORSENING SYMPTOMS. - Billing Disposition and Condition Condition: STABLE Disposition: Home - Attestation Statements Document Initiated by Lizibe: Yes Documenting Scribe: Jaxson Ruggiero Provider For Whom Sergio is Documenting (Include Credential): Ramy Garcia MD Scribe Attestation: Jaxson Hansen, scribed for Ramy Garcia MD on 03/25/19 at 1042. Scribe Documentation Reviewed: Yes Provider Attestation: The documentation as recorded by the Jaxson wyatt accurately reflects the service I personally performed and the decisions made by , Ramy Garcia MD Status of Scribe Document: Viewed
[2019-03-24 19:45] LABS: ABS Basophils 0.1 10^3/ul (0-0.2); ABS Eosinophils 0.1 10^3/ul (0-0.6); ABS Lymphocytes 1.1 10^3/ul (1.0-4.8); ABS Monocytes 0.7 10^3/ul (0-0.8); ABS Neutrophils 7.1 10^3/ul (1.5-7.7); Eosinophil % 0.7 %; Hematocrit 40 % (42-52); Hemoglobin 13.3 g/dL (14.0-18.0); Lymphocyte % 12.1 %; Mean Corpuscular HGB Conc 34 g/dL (31-36); Mean Corpuscular Hemoglobin 33 pg (27-31); Mean Corpuscular Volume 99 fL (80-94); Mean Platelet Volume 10.1 fL (7.4-10.4); Platelet Count 163 10^3/uL (150-450); Red Blood Count 4.03 10^6 /uL (4.18-5.48); Red Cell Distribution Width 14 % (10.5-15)
[2019-03-24 20:01] LABS: Albumin 3.8 g/dL (3.2-5.2); Albumin/Globulin Ratio 1.1 (1-3); BUN/Creatinine Ratio 10.2 (8-20); Calcium 9.1 mg/dL (8.6-10.3); EGFR African American 99.4 (>60); EGFR Non-African American 82.1 (>60); Globulin 3.6 g/dL (2-4); Total Protein 7.4 g/dL (6.4-8.9)
[2019-03-24 20:53] LABS: Erythrocyte Sed Rate 6 mm/Hr (0-19)
[2019-03-24] MEDS ORDERED: Morphine 4 MG/ML VIAL (1 ml) 4 MG/ML VIAL IV ONE (20:59)
[2019-03-24] MEDS ORDERED: Metoclopramide IV* 5 MG/ML 2 ML VIAL IV ONE (21:00)
[2019-03-24 22:31] VITALS: BP 129/61
== END 2019-03-24 22:43 | disposition home or self-care (01) ==
LOC: ED 18:49
DX: R51 Headache (principal); I10 Essential (primary) hypertension; I25.10 Atherosclerotic heart disease of native coronary artery without angina pectoris; E78.5 Hyperlipidemia, unspecified; J44.9 Chronic obstructive pulmonary disease, unspecified; E78.00 Pure hypercholesterolemia, unspecified; K21.9 Gastro-esophageal reflux disease without esophagitis; Z95.0 Presence of cardiac pacemaker; Z85.46 Personal history of malignant neoplasm of prostate; Z87.891 Personal history of nicotine dependence
CPT/HCPCS: 36415; 70450; 80053; 82375; 83605; 85025; 85652; 85730; 86850; 86900; 86901; 93005; 96374; 96375; 96376; 99284; J0360; J2270; J2765

== ENCOUNTER 2022-05-20 09:10 | Inpatient (IN) ==
[2022-05-20] MEDS ORDERED: Ondansetron 4 mg VIAL 2 MG/ML 2 ml VIAL IV PRN (14:19)
[2022-05-20 14:32] LABS: ABS Basophils 0.1 10^3/ul (0-0.2); ABS Eosinophils 0.2 10^3/ul (0-0.6); ABS Lymphocytes 0.9 10^3/ul (1.0-4.8); ABS Monocytes 0.9 10^3/ul (0-0.8); Hematocrit 33 % (42-52); Hemoglobin 10.7 g/dL (14.0-18.0); Mean Corpuscular HGB Conc 32 g/dL (31-36); Mean Corpuscular Hemoglobin 29 pg (27-31); Mean Corpuscular Volume 90 fL (80-94); Mean Platelet Volume 7.9 fL (7.4-10.4); Platelet Count 225 10^3/uL (150-450); Red Blood Count 3.72 10^6 /uL (4.18-5.48); Red Cell Distribution Width 17 % (10-15); White Blood Count 9.1 10^3/uL (3.5-10.8)
[2022-05-20] MEDS ORDERED: Lactated Ringers 1000 ml BAG 1,000 ML IV SCH (15:00)
[2022-05-20 15:09] LABS: Albumin 3.5 g/dL (3.2-5.2); Albumin/Globulin Ratio 1.2 (1-3); Calcium 9.1 mg/dL (8.6-10.3); Potassium 4.5 mmol/L (3.5-5.0); Total Bilirubin 0.7 mg/dL (0.2-1.0); Total Protein 6.5 g/dL (6.4-8.9); eGFR CKD-EPI 62.1 (>60)
[2022-05-20] MEDS ORDERED: Albuterol 2.5mg/3 ml (0.083%) NEB.SOLN INH PRN (16:07)
[2022-05-20] MEDS: Mometasone 220 MCG MDI INH SCH (20:35)
[2022-05-20] MEDS ORDERED: Heparin 5000 UNITS/ML 1 mL VIAL SUBCUT SCH (22:00)
[2022-05-21] MEDS: Mometasone 220 MCG MDI INH SCH (08:47)
[2022-05-21] MEDS ORDERED: Tiotropium Brom/Olodaterol MDI INH SCH (09:00)
[2022-05-21] MEDS ORDERED: Aspirin EC 81 mg TAB.EC (enteric coated) PO SCH (09:00)
[2022-05-21 09:49] LABS: Calcium 8.8 mg/dL (8.6-10.3); Magnesium 1.7 mg/dL (1.9-2.7); Potassium 4.1 mmol/L (3.5-5.0); eGFR CKD-EPI 76.5 (>60)
[2022-05-21 12:10] VITALS: BP 152/67
== END 2022-05-21 13:55 | disposition home or self-care (01) | DRG 394 ==
LOC: ED 09:10 → EDHOLD 14:19 → SSU 18:30
PROVIDERS: ADMIT Surgery; ATTEND Surgery

== ENCOUNTER 2022-05-26 13:00 | Observation (INO) ==
[~2022-05-26 13:00] MED LIST changes: +Buffered Lidocaine 1% SYRIN 1 ml INTRADERM ONE; +Famotidine IV 10 MG/ML 2 ml VIAL (20 mg) IV ONE; -Iohexol 350* (CONTRAST) 500 ML MDV IV ONE; +Lactated Ringers 1000 ml BAG 1,000 ML IV SCH; -Metoclopramide IV* 5 MG/ML 2 ML VIAL IV SLOW PU ONE; -NS 0.9% 500 ML* 500 ML IV ONE; -Valsartan TAB* 80 MG PO ONE; -methylPREDNISolone 125 MG* 2 ML VIAL IV ONE
[2022-05-26] MEDS ORDERED: Famotidine IV 10 MG/ML 2 ml VIAL (20 mg) ONE (13:17)
[2022-05-26] MEDS ORDERED: ceFAZolin 2 GM in NS PREMIX 2 GM/100 ML BAG IVPB ONE (13:50)
[2022-05-26] MEDS ORDERED: Rocuronium 50 mg VIAL 10 mg/ml 5 ml VIAL (50 mg) ONE (14:07)
[2022-05-26] MEDS ORDERED: Propofol 10 MG/ML 20 ML BTL ONE (14:09)
[2022-05-26] MEDS ORDERED: fentaNYL 250 mcg/5 ml 50 MCG/ML 5 ml VIAL (250 MCG) ONE (14:12)
[2022-05-26] MEDS ORDERED: Phenylephrine IV 10 MG/ML 1 ml VIAL ONE (14:58)
[2022-05-26] MEDS ORDERED: Bupivacaine 0.25% w/EPI 10 ML SDV ONE (15:01)
[2022-05-26] MEDS ORDERED: Magnesium Sulfate IV 0.5 GM/ML 2 ml VIAL (1 gm) ONE (15:36)
[2022-05-26] MEDS ORDERED: Ondansetron 4 mg VIAL 2 MG/ML 2 ml VIAL ONE (15:50)
[2022-05-26] MEDS ORDERED: Dexamethasone IV 4 MG/ML VIAL 1 ml VIAL ONE (15:50)
[2022-05-26] MEDS ORDERED: fentaNYL 100 mcg/2 ml 50 MCG/ML VIAL IV PRN (17:01)
[2022-05-26] MEDS ORDERED: Naloxone 0.4 mg VIAL 0.4 mg/ml 1 ml VIAL IV PRN (17:01)
[2022-05-26] MEDS ORDERED: Ondansetron 4 mg VIAL 2 MG/ML 2 ml VIAL IV PRN (17:01)
[2022-05-26] MEDS ORDERED: Acetaminophen IV 1 GM/100ML 100 ML IV ONE (17:20)
[2022-05-26] MEDS ORDERED: HYDROcodone/ACETAMIN 5/325 mg TAB PO PRN (18:20)
[2022-05-26] MEDS ORDERED: Albuterol HFA INHALER 8 gm MDI INH PRN (18:24)
[2022-05-26] MEDS ORDERED: Albuterol/Ipratropium NEB.SOL (2.5/0.5 MG) 3 ML NEB.SOLN INH SCH (19:00)
[2022-05-26] MEDS ORDERED: Aspirin EC 81 mg TAB.EC (enteric coated) PO SCH (21:00)
[2022-05-26] MEDS: Heparin 5000 UNITS/ML 1 mL VIAL SUBCUT SCH (22:06)
[2022-05-27] MEDS: Heparin 5000 UNITS/ML 1 mL VIAL SUBCUT SCH ×2 (05:52→14:57)
[2022-05-27] MEDS ORDERED: Albuterol 2.5mg/3 ml (0.083%) NEB.SOLN INH SCH (07:00)
[2022-05-27] MEDS ORDERED: Tiotropium Brom/Olodaterol MDI INH SCH (09:00)
[2022-05-27] MEDS ORDERED: Potassium Chlor 20 meq TAB.ER PO SCH (09:00)
[2022-05-27] MEDS ORDERED: FLUTICAS/UMECLI/VILANT 100-62.5-25 MDI (NF) INH SCH (09:00)
[2022-05-27 12:27] VITALS: BP 146/72
== END 2022-05-27 14:42 | disposition home or self-care (01) ==
LOC: SSU 13:00 → OR 13:00
PROVIDERS: ADMIT Surgery; ATTEND Surgery